=== PATIENT | female | born 1965 | race Caucasian/White ===

== ENCOUNTER 2024-10-21 14:39 | Emergency (ER) | payer BC ==
[2024-10-21] MEDS ORDERED: ONDANSETRON 4 MG/2 ML VIAL ONE (15:22)
[2024-10-21] MEDS ORDERED: FENTANYL CITR 100 MCG/2 ML ONE (15:23)
[2024-10-21] MEDS ORDERED: NA CHLORIDE 0.9% 1,000 ML ONE (15:23)
[2024-10-21 15:26] LABS: Absolute Lymphocytes (CBC) 2.3 K/uL (0.7-4.9); Hematocrit 40.2 % (36.0-45.0); Hemoglobin 13.6 g/dL (12.0-15.0); MCH 30.1 pg (27.0-35.0); MCHC 33.8 g/dL (32.0-36.0); MCV 89.0 fL (80-100); MPV 6.5 fL (7.6-11.3); Nucleated RBC Absolute Count 0.0 (0-0); Nucleated Red Blood Cells % 0.1 % (0-0); RBC Red Blood Cell Count 4.51 M/uL (3.86-4.86); White Blood Count 6.70 thou/uL (4.3-10.9)
[2024-10-21 15:32] LABS: Sqamous Epithelial <5 /HPF (None Seen); Urine Culture Reflex Order NOT NEEDED; Urine Microscopic Reflex YN ORDER UMIC
--- NOTE | 2024-10-21 15:38 | RAD REPORT ---
Stone Protocol CLINICAL INDICATION: Female, 59 years old.right flank pain TECHNIQUE: CT abdomen and pelvis was performed, without IV contrast, as per department protocol using a CT stone protocol. Axial, sagittal and coronal reconstructions were obtained. One or more of the following dose reduction techniques were used: Automated exposure control, adjustment of the mA and/o r kV according to the patient size, and/or iterative reconstruction. Unless otherwise specified, incidental findings do not require dedicated imaging follow-up. [id number]. IV CONTRAST: Not administered. COMPARISON: No prior exams FINDINGS: The lack of intravenous contrast limits the sensitivity of this exam for evaluation of solid visceral organs, vascular structures, and retroperitoneum. LOWER CHEST: No acute process identified.No significant pericardial effusion. UPPER GI: No significant abnormality. LIVER: Nodular liver contour. GALLBLADDER/BILE DUCTS: No biliary ductal dilatation.? PANCREAS: No mass, ductal dilation, or yared-pancreatic fluid. SPLEEN: Unremarkable. ADRENALS: No adrenal masses. 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 ABDOMINAL AORTA AND OTHER VESSELS: Mild atherosclerotic changes. PERITONEUM: No abnormal free fluid. No free air. LYMPH NODES: No pathologic lymphadenopathy. ABDOMINAL WALL: Small fat containing umbilical hernia. SMALL BOWEL/COLON: Small bowel has normal course and caliber. No colonic wall thickening or pericolon ic inflammatory changes. Moderate formed stool burden. URINARY BLADDER: Underdistended but grossly unremarkable. REPRODUCTIVE ORGANS: Uterus surgically absent. No adnexal abnormality. MUSCULOSKELETAL: Remote L1 compression fracture. Scattered degenerative changes are present. Broad-ba sed disc bulge at L3-4 results in severe central spinal stenosis. The disc is partially calcified suggesting a chronic process. ADDITIONAL FINDINGS: None. IMPRESSION: No acute findings within the abdomen or pelvis. No urinary tract calculi. Ancillary findings as noted above.
[2024-10-21 15:48] LABS: ALT/SGPT 28.0 U/L (13-56); AST/SGOT 11.0 U/L (15-37); Albumin 3.4 g/dL (3.4-5.0); Albumin/Globulin Ratio 0.9 (1.1-1.8); Alkaline Phosphatase 119.0 U/L (45-117); Anion Gap 9.0 mEq/L (5.0-15.0); BUN Blood Urea Nitrogen 13.0 mg/dL (7-18); Globulin 3.6 g/dL (2.3-3.5); Glucose Level 136.0 mg/dL (74-106); Lipase 18.0 U/L (13-75); Potassium 4.0 mEq/L (3.5-5.1)
[2024-10-21] MEDS ORDERED: KETOROLAC 30 MG/ML INJ ONE (16:32)
[2024-10-21] MEDS ORDERED: METHOCARBAMOL 1,000 MG/10 ML VIAL ONE (16:32)
[2024-10-21] MEDS ORDERED: NA CHLORIDE 0.9% 100 ML ONE (16:32)
--- NOTE | 2024-10-21 17:33 | EDPHYS ---
Physician Documentation [facility] Name: Dorita Andersen Age: 59 yrs Sex: Female : 1965 Arrival Date: 10/21/2024 Time: 14:39 Bed Treatment Private MD: ED Physician Antonio Salgado HPI: 10/21 14:55 This 59 yrs old Female presents to ER via Ambulatory with complaints of Flank Pain - RT.cp 14:55 The patient complains of pain in the right flank. cp 14:55 The pain radiates to the right side of abdomen. cp 14:55 Onset: The symptoms/episode began/occurred this past Saturday. Associated signs and cp symptoms: Pertinent positives: suprapubic pain, Pertinent negatives: diarrhea, fever, pain radiating to the lower extremities, vomiting. Severity of pain: in the emergency department the pain is unchanged despite home interventions. Historical: - Allergies: 14:52 No Known Allergies; dd2 - PMHx: 14:53 2 KIDNEYS RT; dd2 - PSHx: 14:53 PARTIAL HYSTERECTOMY; dd2 - Immunization history:: Adult Immunizations up to date. - Infectious Disease History:: Denies. - Social history:: Smoking status: Patient reports the use of cigarette tobacco products, smokes one pack cigarettes per day. ROS: 15:00 Back: Positive for flank pain, on the right, Negative for injury or acute deformity, cp 15:00 Abdomen/GI: Positive for abdominal pain, nausea, Negative for vomiting, diarrhea, cp constipation, 15:00 Constitutional: Negative for chills, fever, poor PO intake, cp 15:00 Cardiovascular: Negative for chest pain, edema, palpitations, cp 15:00 Respiratory: Negative for cough, shortness of breath, wheezing, 15:00 : Negative for hematuria, burning with urination, difficulty urinating, 15:00 Neuro: Negative for altered mental status, dizziness, headache, numbness, weakness, 15:00 All other systems are negative, Exam: 15:05 Constitutional: The patient appears in no acute distress, alert, awake, cp non-diaphoretic, non-toxic, well developed, well nourished, uncomfortable, 15:05 Head/Face: Normocephalic, atraumatic. cp 15:05 Eyes: Periorbital structures: appear normal, Conjunctiva: normal, no exudate, no injection, Sclera: no appreciated abnormality, Lids and lashes: appear normal, bilaterally, 15:05 ENT: External ear(s): are unremarkable, Nose: is normal, Mouth: Lips: moist, Oral mucosa: moist, Posterior pharynx: Airway: no evidence of obstruction, patent, 15:05 Chest/axilla: Inspection: normal, 15:05 Cardiovascular: Rate: normal, Rhythm: regular, Edema: is not appreciated, JVD: is not appreciated, 15:05 Respiratory: the patient does not display signs of respiratory distress, Respirations: normal, no use of accessory muscles, no retractions, labored breathing, is not present, Breath sounds: are clear throughout, no decreased breath sounds, no stridor, no wheezing, 15:05 Abdomen/GI: Inspection: abdomen appears normal, Bowel sounds: active, all quadrants, Palpation: soft, in all quadrants, nontender, in all quadrants, rebound tenderness, is not appreciated, 15:05 Back: pain, that is severe, of the right mid back and right low back, ROM is painful, with all movement, vertebral tenderness, is not appreciated, Straight leg raises: of both lower extremities does not illicit pain, 15:05 Skin: cellulitis, is not appreciated, no rash present. 15:05 Neuro: Orientation: to person, place \T\ time. Mentation: is normal, Motor: moves all fours, strength is normal, Sensation: is normal, Vital Signs: 14:50 BP 116 / 83; Pulse 74; Resp 18; Temp 98.4; Pulse Ox 97% on R/A; Weight 86.18 kg; Height dd2 5 ft. 9 in. ; Pain 10/10; 15:53 BP 111 / 55; Pulse 63; Resp 18; Pulse Ox 96% on R/A; ph 18:00 BP 121 / 65; Pulse 71; Resp 16; Pulse Ox 98% ; bp 14:50 Body Mass Index 28.06 (86.18 kg, 175.26 cm) dd2 14:50 Pain Scale: Adult dd2 MDM: 14:45 Medical Screening Exam initiated cp 15:00 Differential diagnosis: nephrolithiasis, pyelonephritis, UTI, diverticulitis. cp 17:31 Data reviewed: vital signs, nurses notes, lab test result(s), radiologic studies, CT cp scan, and as a result, I will discharge patient. 17:31 I considered the following discharge prescriptions or medication management in the emergency department Medications were administered in the Emergency Department. See MAY. 17:31 Counseling: I had a detailed discussion with the patient and/or guardian regarding the historical points, exam findings, and any diagnostic results supporting the discharge/admit diagnosis, lab results, radiology results, the need for outpatient follow up, a family practitioner, to return to the emergency department if symptoms worsen or persist or if there are any questions or concerns that arise at home. Response to treatment: the patient's symptoms have mildly improved after treatment, and as a result, I will discharge patient. 10/21 14:53 Order name: CBC with Diff; Complete Time: 15:41 cp 10/21 15:41 Interpretation: Normal except: MPV 6.5; EOSINOPHIL % 8.4; EOSA 0.6. cp 10/21 14:53 Order name: CMP; Complete Time: 16:11 cp 10/21 16:20 Interpretation: Normal except: CL 111; GLUC 136; GFR 70; AST 11; ALK 119; GLOB 3.6; A/G cp 0.9. 10/21 14:53 Order name: Lipase; Complete Time: 16:11 cp 10/21 14:55 Order name: UA Rfx Minor Cult if indicated; Complete Time: 15:41 cp 10/21 15:41 Interpretation: Normal except: UESTR 25. cp 10/21 14:55 Order name: CT Stone Protocol; Complete Time: 15:41 cp 10/21 14:53 Order name: IV Saline Lock; Complete Time: 15:49 cp 10/21 14:53 Order name: Labs collected and sent; Complete Time: 15:49 cp Administered Medications: 15:30 Drug: Ondansetron IVP 4 mg IVP once; over 2 minutes Route: IVP; Site: left antecubital; ph 18:01 Follow up: Response: No adverse reaction bp 15:30 Drug: NS 0.9% IV 1000 ml IV at 1 bolus Per protocol; to be given as a bolus over 60 ph minutes Route: IV; Rate: 1 bolus; Site: left antecubital; 18:01 Follow up: IV Status: Completed infusion bp 15:30 Drug: fentaNYL (PF) IVP 25 mcg IVP once Route: IVP; Site: left antecubital; ph 18:01 Follow up: Response: No adverse reaction bp 16:43 Drug: Methocarbamol IVPB 1 grams IVPB once over 1 hrs; (mix in NS 100 mL) Route: IVPB; ph Infused Over: 1 hrs; Site: left antecubital; 18:01 Follow up: IV Status: Completed infusion bp 16:43 Drug: Ketorolac IVP 15 mg IVP once Route: IVP; Site: left antecubital; ph 18:01 Follow up: Response: No adverse reaction bp Disposition: 18:46 I was immediately available on-site in the Emergency Department for consultation in the ms3 care of the patient. 10/22 17:06 Chart complete. cp Disposition Summary: 10/21/24 17:32 Discharge Ordered Notes: Location: Home cp Problem: new cp Symptoms: have improved cp Condition: Stable cp Diagnosis - Radiculopathy, lumbar region cp - Low back pain cp Followup: cp - With: Private Physician - When: 5 - 6 days - Reason: Recheck today's complaints Discharge Instructions: - Discharge Summary Sheet cp - Acute Back Pain, Adult cp - Lumbosacral Radiculopathy cp - Heat Therapy cp - Back Exercises cp Forms: - Medication Reconciliation Form cp - Antibiotic Education cp - Prescription Opioid Use cp - Patient Portal Instructions cp - Leadership Thank You Letter cp Prescriptions: - diclofenac sodium 50 mg Oral tablet, delayed release (enteric coated) - take 1 tablet ORAL route every 8-12 hours; 30 tablet; Refills: 0, Product cp Selection Permitted - methocarbamol 750 mg Oral tablet - take 1 tablet ORAL route 3 times per day; 30 tablet; Refills: 0, Product cp Selection Permitted Signatures: Dispatcher [employer] EDVibha Marie RN RN ph Kian Haile PA PA cp Antonio Salgado DO DO ms3 SYED QUINTERO RN RN dd2 Michael Truong RN bp Corrections: (The following items were deleted from the chart) 10/21 14:53 14:53 CBC+H.LAB.BRZ ordered. EDMS EDMS 14:53 14:53 COMPREHENSIVE METABOLIC PANEL+C.LAB.BRZ ordered. EDMS EDMS 14:53 14:53 LIPASE+C.LAB.BRZ ordered. EDMS EDMS 14:53 14:52 PMHx: None; dd2 dd2 16:20 16:11 Normal except: CL 111; GLUC 136; GFR 70; AST 11; ALK 119. cp cp 10/22 17:03 08 15:05 Back: pain, that is severe, of the right subscapular area and right mid cp back, ROM is painful, with all movement, cp
--- NOTE | 2024-10-21 17:33 | ER ---
Nurse's Notes [facility] Name: Dorita Andersen Age: 59 yrs Sex: Female : 1965 Arrival Date: 10/21/2024 Time: 14:39 Bed Treatment Private MD: Diagnosis: Radiculopathy, lumbar region;Low back pain Presentation: 10/21 14:50 Chief complaint: Patient states: SHE IS HAVING RT LOWER BACK AND RT FLANK PAIN WITH dd2 BLADDER PRESSURE BEGINNING SATURDAY. PT REPORTS WENT TO URGENT CARE AND WAS SENT TO THE ER. Coronavirus screen: At this time, the client does not indicate any symptoms associated with coronavirus-19. Ebola Screen: No symptoms or risks identified at this time. Initial Sepsis Screen: Does the patient meet any 2 criteria? No. Patient's initial sepsis screen is negative. Does the patient have a suspected source of infection? No. Patient's initial sepsis screen is negative. Risk Assessment: Do you want to hurt yourself or someone else? Patient reports no desire to harm self or others. Onset of symptoms was October 18, 2024. 14:50 Method Of Arrival: Ambulatory dd2 14:50 Acuity: [place] 3 dd2 Triage Assessment: 14:53 General: Appears in no apparent distress. uncomfortable, Behavior is calm, cooperative, dd2 appropriate for age. Pain: Complains of pain in right low back, suprapubic area and posterior aspect of right lateral abdomen Pain currently is 10 out of 10 on a pain scale. : Reports pain in right in suprapubic area flank(s), in lower back BLADDER PRESSURE. Historical: - Allergies: 14:52 No Known Allergies; dd2 - PMHx: 14:53 2 KIDNEYS RT; dd2 - PSHx: 14:53 PARTIAL HYSTERECTOMY; dd2 - Immunization history:: Adult Immunizations up to date. - Infectious Disease History:: Denies. - Social history:: Smoking status: Patient reports the use of cigarette tobacco products, smokes one pack cigarettes per day. Screenin:[address] [facility] ED Fall Risk Assessment (Adult) History of falling in the last 3 months, ph including since admission No falls in past 3 months (0 pts) Confusion or Disorientation No (0 pts) Intoxicated or Sedated No (0 pts) Impaired Gait No (0 pts) Mobility Assist Device Used No (0 pt) Altered Elimination No (0 pt) Score/Fall Risk Level 0 - 2 = Low Risk Oriented to surroundings, Maintained a safe environment, Hourly rounding (assess needs \T\ fall precautionary measures) done. Abuse screen: Denies threats or abuse. Denies injuries from another. Nutritional screening: No deficits noted. Tuberculosis screening: No symptoms or risk factors identified. Assessment: 15:15 General: Appears in no apparent distress. uncomfortable, well groomed, Behavior is ph calm, cooperative, appropriate for age. Pain: Complains of pain in posterior aspect of right lateral abdomen and right low back Pain radiates to abdomen and suprapubic area. Neuro: Level of Consciousness is awake, alert, obeys commands, Oriented to person, place, time, situation. Cardiovascular: Capillary refill < 3 seconds in bilateral fingers Patient's skin is warm and dry. Respiratory: Airway is patent Respiratory effort is even, unlabored, Respiratory pattern is regular, symmetrical. GI: Reports lower abdominal pain. : Reports pain in right in suprapubic area lower quadrant(s) in lower back. Derm: Skin is pink, warm \T\ dry. Vital Signs: 14:50 BP 116 / 83; Pulse 74; Resp 18; Temp 98.4; Pulse Ox 97% on R/A; Weight 86.18 kg; Height dd2 5 ft. 9 in. ; Pain 10/10; 15:53 BP 111 / 55; Pulse 63; Resp 18; Pulse Ox 96% on R/A; ph 18:00 BP 121 / 65; Pulse 71; Resp 16; Pulse Ox 98% ; bp 14:50 Body Mass Index 28.06 (86.18 kg, 175.26 cm) dd2 14:50 Pain Scale: Adult dd2 ED Course: 14:44 Patient arrived in ED. cj3 14:45 Kian Haile PA is PHCP. cp 14:45 Antonio Salgado DO is Attending Physician. cp 14:52 Triage completed. dd2 14:53 Arm band placed on right wrist. dd2 15:06 Vibha Thao, BOONE is Primary Nurse. ph 15:06 CT Stone Protocol Sent. ph 15:22 CT Stone Protocol In Process Unspecified. EDMS 15:36 Initial lab(s) drawn, by me, sent to lab. Urine collected: clean catch specimen, ph cloudy. Inserted saline lock: 20 gauge in left antecubital area, using aseptic technique. Blood collected. Flushed with 10 mL NS. 15:53 Patient has correct armband on for positive identification. Bed in low position. Call ph light in reach. Side rails up X 1. Pulse ox on. NIBP on. Door closed. Noise minimized. Warm blanket given. Pillow given. 17:11 Primary Nurse role handed off by Vibha Thao RN bp 17:11 Michael Truong RN is Primary Nurse. bp 18:00 No provider procedures requiring assistance completed. IV discontinued, intact, bp bleeding controlled, No redness/swelling at site. Pressure dressing applied. Administered Medications: 15:30 Drug: Ondansetron IVP 4 mg IVP once; over 2 minutes Route: IVP; Site: left antecubital; ph 18:01 Follow up: Response: No adverse reaction bp 15:30 Drug: NS 0.9% IV 1000 ml IV at 1 bolus Per protocol; to be given as a bolus over 60 ph minutes Route: IV; Rate: 1 bolus; Site: left antecubital; 18:01 Follow up: IV Status: Completed infusion bp 15:30 Drug: fentaNYL (PF) IVP 25 mcg IVP once Route: IVP; Site: left antecubital; ph 18:01 Follow up: Response: No adverse reaction bp 16:43 Drug: Methocarbamol IVPB 1 grams IVPB once over 1 hrs; (mix in NS 100 mL) Route: IVPB; ph Infused Over: 1 hrs; Site: left antecubital; 18:01 Follow up: IV Status: Completed infusion bp 16:43 Drug: Ketorolac IVP 15 mg IVP once Route: IVP; Site: left antecubital; ph 18:01 Follow up: Response: No adverse reaction bp Medication: 15:53 VIS not applicable for this client. ph Outcome: 17:32 Discharge ordered by . cp 18:00 Discharged to home ambulatory, with family, bp 18:00 Condition: stable 18:00 Discharge instructions given to patient, Instructed on discharge instructions, follow up and referral plans. medication usage, Demonstrated understanding of instructions, follow-up care, medications, Prescriptions given X 2, 18:02 Patient left the ED. bp Signatures: Dispatcher [employer] EDNH Vibha Thao RN RN ph Kian Haile PA PA cp Michael Truong RN RN bp SYED QUINTERO RN RN dd2 Karen Bustos [email or web address] Corrections: (The following items were deleted from the chart) 14:53 14:52 PMHx: None; dd2 dd2
[2024-10-21 18:37] VITALS: TEMP 98.4
[2024-10-21 18:39] VITALS: BP 121/65; O2SAT 98
== END 2024-10-21 18:02 | disposition home or self-care (01) ==
LOC: ER 14:39
DX: M54.16 Radiculopathy, lumbar region (principal); M54.50 Low back pain, unspecified; F17.210 Nicotine dependence, cigarettes, uncomplicated
CPT/HCPCS: 36415; 74176; 76377; 80053; 81001; 83690; 85025; 96361; 96365; 96375; 99284; J2405; J2800; J3010; J7030